=== PATIENT | male | born 1960 | race Two or more races ===

== ENCOUNTER 2016-11-03 16:38 | Emergency (ER) | payer MEDICAID ==
[~2016-11-03] VITALS: Ht 175.3 cm; Wt 63.5 kg
[2016-11-03 16:38] VITALS: BP 145/95
== END 2016-11-03 18:31 | disposition home or self-care (01) ==
LOC: ER 16:40
DX: L30.9 Dermatitis, unspecified (principal)
CPT/HCPCS: A4606; Z7610

== ENCOUNTER 2017-06-13 10:56 | Emergency (ER) | payer MEDICAID ==
[~2017-06-13] VITALS: Ht 175.3 cm; Wt 65.8 kg
[2017-06-13 11:03] VITALS: BP 178/111
== END 2017-06-13 11:29 | disposition home or self-care (01) ==
LOC: ER 10:58
DX: K11.20 Sialoadenitis, unspecified (principal); K02.9 Dental caries, unspecified
CPT/HCPCS: 99283; A4606; Z7610

== ENCOUNTER 2017-06-26 01:40 | Emergency (ER) | payer MEDICAID ==
[~2017-06-26] VITALS: Ht 172.7 cm; Wt 63.5 kg
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
--- NOTE | 2017-06-26 02:19 | NUR ---
PT SEEN BY MD IN TRIAGE AT APPROX [id number].
--- NOTE | 2017-06-26 03:00 | NUR ---
PT TO CT VIA W/C. VSS.
--- NOTE | 2017-06-26 03:12 | NUR ---
PT BACK FROM CT.
--- NOTE | 2017-06-26 04:28 | NUR ---
PT RESTING QUIETLY, AROUSES EASILY TO VOICE. VSS. AWAITING CT RESULTS.
--- NOTE | 2017-06-26 05:04 | NUR ---
PT DID NOT WANT TO WAIT ON DISCHARGE INSTRUCTIONS, LEFT BEFORE SIGNING.
[2017-06-26 05:07] VITALS: BP 137/82
== END 2017-06-26 05:08 | disposition home or self-care (01) ==
LOC: ER 01:49
DX: S19.9XXA Unspecified injury of neck, initial encounter (principal); Y04.0XXA Assault by unarmed brawl or fight, initial encounter; Y93.89 Activity, other specified; Y92.89 Other specified places as the place of occurrence of the external cause; Y99.8 Other external cause status
CPT/HCPCS: 72125; 99284; A4606; Z7610

== ENCOUNTER 2018-05-19 21:30 | Emergency (ER) | payer MEDICAID ==
[~2018-05-19] VITALS: Ht 175.3 cm; Wt 63.5 kg
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
[2018-05-19 23:55] VITALS: BP 128/79
== END 2018-05-19 23:56 | disposition home or self-care (01) ==
LOC: ER 21:34
DX: J06.9 Acute upper respiratory infection, unspecified (principal); I10 Essential (primary) hypertension
CPT/HCPCS: 71045; 87804 ×2; 99284; A4606; Z7610; 87400

== ENCOUNTER 2018-08-23 09:55 | Emergency (ER) | payer MEDICAID ==
[~2018-08-23] VITALS: Ht 170.2 cm; Wt 71.7 kg
[2018-08-23 10:01] VITALS: BP 145/103
--- NOTE | 2018-08-23 10:24 | NUR ---
for discharge-Aftercare instructions given Home ambulatory Stable
== END 2018-08-23 10:26 | disposition home or self-care (01) ==
LOC: ER 09:55
DX: S90.02XA Contusion of left ankle, initial encounter (principal); I10 Essential (primary) hypertension; V49.49XA Driver injured in collision with other motor vehicles in traffic accident, initial encounter; Y93.89 Activity, other specified; Y92.413 State road as the place of occurrence of the external cause; Y99.8 Other external cause status
CPT/HCPCS: Z7502

== ENCOUNTER 2019-07-17 20:29 | Emergency (ER) | payer MEDICAID ==
[~2019-07-17] VITALS: Ht 175.3 cm; Wt 63.5 kg
[2019-07-17 20:29] VITALS: BP 139/73
--- NOTE | 2019-07-17 21:15 | NUR ---
MALE chemical processing supervisor accompanied MALE patient for B PAC. TAO
== END 2019-07-17 21:28 | disposition home or self-care (01) ==
LOC: ER 20:31
DX: N48.1 Balanitis (principal); I10 Essential (primary) hypertension

== ENCOUNTER 2019-08-25 22:27 | Emergency (ER) | payer MEDICAID ==
[~2019-08-25] VITALS: Ht 175.3 cm; Wt 63.5 kg
[2019-08-25 22:51] VITALS: BP 168/98
[2019-08-25] MEDS ORDERED: FLUCONAZOLE (100 MG) 100 MG TABLET ONE (23:04)
[2019-08-25] MEDS: FLUCONAZOLE (100 MG) 100 MG TABLET PO ONE (23:11)
== END 2019-08-25 23:12 | disposition home or self-care (01) ==
LOC: ER 22:30
DX: N48.1 Balanitis (principal); I10 Essential (primary) hypertension

== ENCOUNTER 2019-09-04 13:44 | Emergency (ER) | payer MEDICAID ==
[~2019-09-04] VITALS: Ht 175.3 cm; Wt 63.5 kg
[2019-09-04 14:06] VITALS: BP 164/108
--- NOTE | 2019-09-04 14:32 | NUR ---
PT SEEN AND EXAMINED BY .
--- NOTE | 2019-09-04 14:57 | NUR ---
Patient discharged to home in stable condition. Written and verbal after care instructions given. Patient verbalizes understanding of instruction. Pt ambulatory with a steady gait
== END 2019-09-04 14:58 | disposition home or self-care (01) ==
LOC: ER 13:45
DX: N48.1 Balanitis (principal); I10 Essential (primary) hypertension

== ENCOUNTER 2020-04-15 18:24 | Emergency (ER) | payer MEDICAID ==
[~2020-04-15] VITALS: Ht 175.3 cm; Wt 63.5 kg
[2020-04-15 22:30] LABS: BASOPHILS # (AUTO) 0.1 /CMM (0.0-0.2); BASOPHILS % (AUTO) 0.9 % (0.0-2.0); EOSINOPHILS % (AUTO) 9.1 % (0.0-6.0); HEMATOCRIT 44 % (39-51); HEMOGLOBIN 14.5 g/dL (13.5-17.5); LYMPHOCYTES # (AUTO) 1.6 /CMM (0.8-4.8); LYMPHOCYTES % (AUTO) 26.8 % (20.0-44.0); MEAN CORPUSCULAR HGB CONC 33 g/dl (31.0-36.0); MEAN CORPUSCULAR VOLUME 95 fL (80-96); MONOCYTES # (AUTO) 0.7 /CMM (0.1-1.30); MONOCYTES % (AUTO) 10.9 % (2.0-12.0); NEUTROPHILS # (AUTO) 3.2 /CMM (1.8-8.9); NEUTROPHILS % (AUTO) 52.3 % (43.0-81.0); PLATELET COUNT (AUTO) 210 /CMM (150-450); RED BLOOD CELL COUNT(AUTO) 4.64 MIL/uL (4.5-6.0); WHITE BLOOD COUNT (AUTO) 6.1 K/uL (4.3-11.0)
[2020-04-15 22:42] LABS: CALCIUM, SERUM 9.4 mg/dL (8.5-10.1); CARBON DIOXIDE 29 mmol/L (21-32); CHLORIDE 109 mmol/L (98-107); CREATININE 1.1 mg/dL (0.6-1.3); GLUCOSE 91 mg/dL (74-106); POTASSIUM 4.8 mmol/L (3.5-5.1); SODIUM SERUM 146 mmol/L (136-145); UREA NITROGEN, BLOOD 27 mg/dL (7-18)
[2020-04-15 22:55] LABS: ALANINE AMINOTRANSFERASE 17 U/L (12-78); ALBUMIN 3.9 g/dL (3.4-5.0); ALKALINE PHOSPHATASE 51 U/L (46-116); ASPARTATE AMINOTRANSFERASE 15 U/L (15-37); B-TYPE NATRIURETIC PEPTIDE 63 PG/ML (0-125); BILIRUBIN,DIRECT 0.1 mg/dL (0.0-0.2); BILIRUBIN,TOTAL 0.4 mg/dL (0.2-1.0); TOTAL PROTEIN, SERUM 7.3 g/dL (6.4-8.2)
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
--- NOTE | 2020-04-16 00:12 | NUR ---
Patient discharged to home in stable condition. Written and verbal after care instructions given. Patient verbalizes understanding of instruction.
--- NOTE | 2020-04-16 00:14 | NUR ---
PATIENT GIVEN ALTERNATIVES TO LOOSEN SECRETIONS: DRINK MORE WATER AND BREATHE IN STEAM FROM WARM SHOWERS.
[2020-04-16 00:32] VITALS: BP 116/72
== END 2020-04-16 00:33 | disposition home or self-care (01) ==
LOC: ER 18:26
DX: R07.89 Other chest pain (principal)
CPT/HCPCS: 36415; 71045-TC; 80048-TC; 80076-TC; 83880; 84484-TC; 85025-TC

== ENCOUNTER 2024-03-21 19:28 | Emergency (ER) | payer MEDICAID ==
[~2024-03-21] VITALS: Ht 170.2 cm; Wt 63.5 kg
[2024-03-21 19:52] VITALS: BP 145/97; TEMP 98
[2024-03-21 20:25] LABS: BASOPHILS # (AUTO) 0.1 K/uL (0.0-0.2); BASOPHILS % (AUTO) 0.7 % (0.0-2.0); EOSINOPHILS # (AUTO) 0.2 K/uL (0.0-0.7); HEMATOCRIT 46 % (39-51); HEMOGLOBIN 15.1 g/dL (13.5-17.5); LYMPHOCYTES # (AUTO) 1.7 K/uL (0.8-4.8); LYMPHOCYTES % (AUTO) 20.6 % (20.0-44.0); MEAN CORPUSCULAR HEMOGLOBIN 31 PG (26.0-33.0); MEAN CORPUSCULAR HGB CONC 33 g/dl (31.0-36.0); MEAN CORPUSCULAR VOLUME 93 fL (80-96); MONOCYTES % (AUTO) 11.9 % (2.0-12.0); NEUTROPHILS # (AUTO) 5.2 K/uL (1.8-8.9); NEUTROPHILS % (AUTO) 63.8 % (43.0-81.0); PLATELET COUNT (AUTO) 255 K/uL (150-450); RED BLOOD CELL COUNT(AUTO) 4.93 MIL/uL (4.5-6.0); RED CELL DISTRIBUTION WIDTH 13.7 % (11.5-15.0); WHITE BLOOD COUNT (AUTO) 8.2 K/uL (4.3-11.0)
[2024-03-21 20:30] LABS: CALCIUM, SERUM 9.7 mg/dL (8.5-10.1); CREATININE 1.2 mg/dL (0.6-1.3); POTASSIUM 4.6 mmol/L (3.5-5.1)
[2024-03-21] MEDS ORDERED: GUAIFENESIN/D-METHORPHAN HB 5 ML UDC ONE (20:38)
[2024-03-21] MEDS ORDERED: KETOROLAC TROMETHAMINE 15 MG/ML VIAL ONE (20:38)
[2024-03-21] MEDS ORDERED: ACETAMINOPHEN 325 MG TABLET ONE (20:38)
[2024-03-21] MEDS: GUAIFENESIN/D-METHORPHAN HB 5 ML UDC PO ONE (20:45)
[2024-03-21] MEDS: KETOROLAC TROMETHAMINE INJ 30 MG/ML VIAL IM ONE (20:45)
[2024-03-21] MEDS: ACETAMINOPHEN 325 MG TABLET PO ONE (20:45)
[2024-03-21] MEDS: KETOROLAC TROMETHAMINE 15 MG/ML VIAL IV ONE (20:45)
[2024-03-21] MEDS ORDERED: AZIT500T4 PO (21:48)
[2024-03-21 22:33] VITALS: O2SAT 98
== END 2024-03-21 22:33 | disposition home or self-care (01) ==
LOC: ER 19:34
DX: R05.9 Cough, unspecified (principal); R07.89 Other chest pain; I10 Essential (primary) hypertension; E78.5 Hyperlipidemia, unspecified; Z79.899 Other long term (current) drug therapy; Z20.822 Contact with and (suspected) exposure to COVID-19
CPT/HCPCS: 99284; 96374; 71045; 87426; 87804 ×2; 85025; 80048; 36415; J1885

== ENCOUNTER 2024-09-26 15:30 | Emergency (ER) | payer MEDICAID ==
[~2024-09-26] VITALS: Ht 172.7 cm; Wt 63.3 kg
[~2024-09-26 15:30] MED LIST: AZIT500T4 PO
[2024-09-26 19:39] VITALS: BP 138/79; TEMP 98; O2SAT 98
== END 2024-09-26 19:39 | disposition home or self-care (01) ==
LOC: ER 15:40
DX: M79.672 Pain in left foot (principal); I10 Essential (primary) hypertension; E78.5 Hyperlipidemia, unspecified; M19.072 Primary osteoarthritis, left ankle and foot; Z79.899 Other long term (current) drug therapy
CPT/HCPCS: 73630-TC